=== PATIENT | female | born 1980 | race American Indian/Alaskan Native ===

== ENCOUNTER 2021-11-04 19:39 | Emergency (ER) | payer MEDICAID ==
[2021-11-04 19:43] VITALS: BP 137/92
== END 2021-11-04 23:50 | disposition left against medical advice (07) ==
LOC: ED 19:39
DX: R51.9 Headache, unspecified (principal); Z53.21 Procedure and treatment not carried out due to patient leaving prior to being seen by health care provider

== ENCOUNTER 2022-01-19 23:29 | Emergency (ER) | payer MEDICAID ==
--- NOTE | 2022-01-20 02:25 | Emergency Department Report ---
HPI - General Chief Complaint: Allergic Reaction ED Past Medical Hx - Past Medical History Previous Medical History?: Yes Hx Hypertension: Yes (during ) Hx Congestive Heart Failure: No Hx Diabetes: Yes (GDM) Hx Deep Vein Thrombosis: No Hx Renal Disease: No Hx Sickle Cell Disease: No Hx Seizures: No Hx Asthma: No Hx COPD: No Hx HIV: No Additional medical history: Hypokalemia - Surgical History Past Surgical History?: Yes Additional Surgical History: C section - Social History Smoking Status: Never Smoker Substance Use Type: None - Medications Home Medications: Home Medications Medication Instructions Recorded Confirmed Last Taken Type Sulfamethoxazole/Trimethoprim 1 each PO BID #5 tablet 04/01/15 04/02/15 Unknown Rx [Bactrim Ds] lisinopriL [Zestril TAB] 20 mg PO QDAY #30 tablet 04/01/15 04/02/15 Unknown Rx metFORMIN [Glucophage] 500 mg PO DAILY #30 tablet 04/01/15 04/02/15 Unknown Rx ED Review of Systems ROS: Stated complaint: POSS ALLERGIC REACTION Other details as noted in HPI Physical Exam - Physical Exam Vital Signs: Vital Signs 01/20/22 01:38 Temperature 98 F Pulse Rate 75 Respiratory 18 Rate Blood Pressure 114/82 O2 Sat by Pulse 100 Oximetry ED Course Vital Signs 01/20/22 01:38 Temperature 98 F Pulse Rate 75 Respiratory 18 Rate Blood Pressure 114/82 O2 Sat by Pulse 100 Oximetry Critical care attestation.: If time is entered above; I have spent that time in minutes in the direct care of this critically ill patient, excluding procedure time. ED Disposition Condition: Stable
[2022-01-20] MEDS ORDERED: diphenhydrAMINE 50 MG/ML VIAL IV STA (03:39)
[2022-01-20] MEDS ORDERED: dexAMETHasone 4 MG/ML VIAL IV ONE (03:39)
[2022-01-20] MEDS ORDERED: SODIUM CHLORIDE 0.9% 1000 ML 1,000 ML IV ONE (03:40)
[2022-01-20] MEDS ORDERED: FAMOTIDINE 20 MG/2 ML INJ IV ONE (03:40)
[2022-01-20 04:29] LABS: Blood Urea Nitrogen 5 mg/dL (7-17); Calcium 9.7 mg/dL (8.4-10.2); Hemolysis Index 2
[2022-01-20 04:34] LABS: BUN/Creatinine Ratio 7
--- NOTE | 2022-01-20 06:04 | Emergency Department Report ---
ED General Adult HPI - General Chief complaint: Allergic Reaction Stated complaint: POSS ALLERGIC REACTION Time Seen by Provider: 01/20/22 03:37 Source: patient Mode of arrival: Ambulatory Limitations: No Limitations - History of Present Illness Initial comments: 41-year-old female [facility] emerge department complaining of pruritus and tingling in numbness sensation and sensation shortness of breath when taking Klor-Con for hypokalemia. She did not sustain any visual rashes or wheezing. He reports no lip swelling or tongue swelling. She has no prior experiences taking this medication was worried about allergic reaction so presents emerge department seeking treatment. -: Gradual Radiation: non-radiation Consistency: constant Improves with: none Associated Symptoms: denies other symptoms Treatments Prior to Arrival: none - Related Data Previous Rx's Medication Instructions Recorded Last Taken Type Sulfamethoxazole/Trimethoprim 1 each PO BID #5 tablet 04/01/15 Unknown Rx [Bactrim Ds] lisinopriL [Zestril TAB] 20 mg PO QDAY #30 tablet 04/01/15 Unknown Rx metFORMIN [Glucophage] 500 mg PO DAILY #30 tablet 04/01/15 Unknown Rx hydrOXYzine HCL [Atarax] 25 mg PO Q6HR PRN #14 tablet 01/20/22 Unknown Rx predniSONE [Deltasone] 20 mg PO QDAY #7 tab 01/20/22 Unknown Rx Allergies Allergy/AdvReac Type Severity Reaction Status Date / Time amoxicillin Allergy Swelling Verified 11/04/21 19:47 Penicillins Allergy Anaphylaxis Verified 11/04/21 19:47 ED Review of Systems ROS: Stated complaint: POSS ALLERGIC REACTION Other details as noted in HPI Comment: All other systems reviewed and negative ED Past Medical Hx - Past Medical History Previous Medical History?: Yes Hx Hypertension: Yes (during ) Hx Congestive Heart Failure: No Hx Diabetes: Yes (GDM) Hx Deep Vein Thrombosis: No Hx Renal Disease: No Hx Sickle Cell Disease: No Hx Seizures: No Hx Asthma: No Hx COPD: No Hx HIV: No Additional medical history: Hypokalemia - Surgical History Past Surgical History?: Yes Additional Surgical History: C section - Social History Smoking Status: Never Smoker Substance Use Type: None - Medications Home Medications: Home Medications Medication Instructions Recorded Confirmed Last Taken Type Sulfamethoxazole/Trimethoprim 1 each PO BID #5 tablet 04/01/15 04/02/15 Unknown Rx [Bactrim Ds] lisinopriL [Zestril TAB] 20 mg PO QDAY #30 tablet 04/01/15 04/02/15 Unknown Rx metFORMIN [Glucophage] 500 mg PO DAILY #30 tablet 04/01/15 04/02/15 Unknown Rx hydrOXYzine HCL [Atarax] 25 mg PO Q6HR PRN #14 tablet 01/20/22 Unknown Rx predniSONE [Deltasone] 20 mg PO QDAY #7 tab 01/20/22 Unknown Rx ED Physical Exam - General Limitations: No Limitations General appearance: alert, in no apparent distress - Head Head exam: Present: atraumatic, normocephalic - Eye Eye exam: Present: normal appearance, PERRL, EOMI Pupils: Present: normal accommodation - ENT ENT exam: Present: normal exam, normal orophraynx, mucous membranes moist, TM's normal bilaterally - Neck Neck exam: Present: normal inspection, full ROM - Respiratory Respiratory exam: Present: normal lung sounds bilaterally, chest wall tenderness. Absent: respiratory distress - Cardiovascular Cardiovascular Exam: Present: regular rate, normal rhythm. Absent: systolic murmur, diastolic murmur, rubs, gallop - GI/Abdominal GI/Abdominal exam: Present: soft, normal bowel sounds - Extremities Exam Extremities exam: Present: normal inspection, normal capillary refill - Back Exam Back exam: Present: normal inspection. Absent: CVA tenderness (R), CVA tenderness (L) - Neurological Exam Neurological exam: Present: alert, oriented X3, CN II-XII intact - Psychiatric Psychiatric exam: Present: normal affect, normal mood - Skin Skin exam: Present: warm, dry, intact, normal color. Absent: rash ED Course Vital Signs 01/20/22 01:38 Temperature 98 F Pulse Rate 75 Respiratory 18 Rate Blood Pressure 114/82 O2 Sat by Pulse 100 Oximetry ED Medical Decision Making - Lab Data Result diagrams: 01/20/22 03:58 Critical care attestation.: If time is entered above; I have spent that time in minutes in the direct care of this critically ill patient, excluding procedure time. ED Disposition Clinical Impression: Adverse drug reaction, Allergic reaction Disposition: HOME / SELF CARE / HOMELESS Is pt being admited?: No Does the pt Need Aspirin: No Condition: Stable Instructions: Accidental Drug Poisoning, Adult, Cough, Adult, [id number], How to Use an Auto-Injector Pen, Cough, Adult, Allergies, Adult Additional Instructions: Your potassium level is normal please discontinue utilization your Klor-Con Prescriptions: hydrOXYzine HCL [Atarax] 25 mg PO Q6HR PRN #14 tablet PRN Reason: Itching predniSONE [Deltasone] 20 mg PO QDAY #7 tab Referrals: DAYANARA AGUILAR [Other] - 3-5 Days
[2022-01-20 06:19] VITALS: BP 118/78
== END 2022-01-20 06:20 | disposition home or self-care (01) ==
LOC: ED 23:29
DX: T50.905A Adverse effect of unspecified drugs, medicaments and biological substances, initial encounter (principal); Y92.89 Other specified places as the place of occurrence of the external cause; T78.40XA Allergy, unspecified, initial encounter; I10 Essential (primary) hypertension; E11.9 Type 2 diabetes mellitus without complications; Z88.0 Allergy status to penicillin
CPT/HCPCS: 36415; 80048; 96361; 96374; 96375; 99283; J1100; J1200; J3490; J7030; Q0162

== ENCOUNTER 2022-01-21 09:57 | Emergency (ER) | payer MEDICAID ==
--- NOTE | 2022-01-21 13:15 | Event Note ---
ED Screening Note Date of service: 01/21/22 Time: 13:13 ED Screening Note: Patient presents with complaints of low blood pressure at home and dizziness She reports her blood pressure was 87/79 and then again at 100/70 She states that she is having recurrent dizziness with sitting still that res olves with getting up and walking around No chest pain per patient Patient does appear anxious Patient was seen here on 01/20/2022 for an allergic reaction to oral Klor-Con This initial assessment/diagnostic orders/clinical plan/treatment(s) is/are subject to change based on patients health status, clinical progression and re- assessment by fellow clinical providers in the ED. Further treatment and workup at subsequent clinical providers discretion. Patient/guardian urged not to elope from the ED as their condition may be serious if not clinically assessed and managed. Initial orders include: Orthostatic vitals EKG Labs
[2022-01-21 13:46] LABS: Basophils # (Auto) 0.1 K/mm3 (0.0-0.1); Eosinophils % (Auto) 0.2 % (0.0-4.3); Hematocrit 36.6 % (30.3-42.9); Hemoglobin 11.8 gm/dl (10.1-14.3); Lymphocytes # (Auto) 1.8 K/mm3 (1.2-5.4); Lymphocytes % (Auto) 37.1 % (13.4-35.0); Mean Corpuscular HGB Conc 32 % (30-34); Mean Corpuscular Volume 85 fl (79-97); Monocytes # (Auto) 0.4 K/mm3 (0.0-0.8); Monocytes % (Auto) 7.8 % (0.0-7.3); Platelet Count 308 K/mm3 (140-440); Red Blood Count 4.28 M/mm3 (3.65-5.03); Red Cell Distribution Width 14.2 % (13.2-15.2)
[2022-01-21 15:06] LABS: Bilirubin,Urine NEG (Negative); Blood,Urine NEG (Negative); Color,Urine Yellow (Yellow); Mucus,Urine FEW /HPF; Protein,Urine <15 mg/dL mg/dL (Negative); Urobilinogen,Urine < 2.0 mg/dL (<2.0)
[2022-01-21 15:19] LABS: Alanine Aminotransferase 6 units/L (7-56); Albumin 4.2 g/dL (3.9-5); Blood Urea Nitrogen 6 mg/dL (7-17); Calcium 9.4 mg/dL (8.4-10.2); Hemolysis Index 8
[2022-01-21 15:21] LABS: BUN/Creatinine Ratio 10
[2022-01-21] MEDS ORDERED: SULFAMETHOXAZOLE/TRIMETHOPRIM 800/160MG DS TAB PO ONE (15:41)
--- NOTE | 2022-01-21 15:44 | Emergency Department Report ---
ED Dizziness HPI - General Chief Complaint: Dizziness Stated Complaint: RX NOT READY AT PHARMACY/LOW BP Time Seen by Provider: 01/21/22 12:05 Source: patient Mode of arrival: Ambulatory Limitations: No Limitations - History of Present Illness Initial Comments: 41-year-old female with no past medical history presents to the emergency department for evaluation of dizziness that started this a.m. She states that she has noted over the past 2 days that her blood pressure has been lower than usual. She states that her systolic pressure for the past few days has been between 95 and 100 which she states is low for her. She states that she was treated 2 days ago with steroids for an allergic reaction and was given a prescription to take steroids over the next 6 days but the pharmacist has not been able to fill the prescription yet. She thinks that her low blood pressure could be related to not starting steroids. She states that dizziness is int ermittent and not associated with any change in position. She denies chest pain shortness of breath nausea vomiting. She denies fever abdominal pain or back pain. MD Complaint: dizziness -: Gradual, days(s) (2) Timing: gradual onset Description: lightheadedness History of Same: No History of Trauma: No Severity: moderate Associated Symptoms: denies: chest pain, confusion, cough, diaphoresis, fev er/chills, loss of appetite, malaise, rash, seizure, shortness of breath, syncope, weakness - Related Data Previous Rx's Medication Instructions Recorded Last Taken Type lisinopriL [Zestril TAB] 20 mg PO QDAY #30 tablet 04/01/15 Unknown Rx metFORMIN [Glucophage] 500 mg PO DAILY #30 tablet 04/01/15 Unknown Rx hydrOXYzine HCL [Atarax] 25 mg PO Q6HR PRN #14 tablet 01/20/22 Unknown Rx predniSONE [Deltasone] 20 mg PO QDAY #7 tab 01/20/22 Unknown Rx Nitrofurantoin [place]/M-Cryst 100 mg PO Q12HR #14 capsule 01/21/22 Unknown Rx [Macrobid CAP] Allergies Allergy/AdvReac Type Severity Reaction Status Date / Time amoxicillin Allergy Swelling Verified 11/04/21 19:47 Penicillins Allergy Anaphylaxis Verified 11/04/21 19:47 ED Review of Systems ROS: Stated complaint: RX NOT READY AT PHARMACY/LOW BP Other details as noted in HPI Comment: All other systems reviewed and negative Constitutional: denies: chills, diaphoresis, fever, malaise, weakness Eyes: denies: eye pain, eye discharge ENT: denies: ear pain, throat pain, dental pain Respiratory: denies: cough, shortness of breath, SOB with exertion, SOB at rest, wheezing Cardiovascular: denies: chest pain, palpitations, dyspnea on exertion, orthopnea, edema Endocrine: no symptoms reported Gastrointestinal: denies: abdominal pain, nausea, vomiting, diarrhea, hematemesis, melena, hematochezia Genitourinary: denies: urgency, dysuria, frequency, hematuria, discharge Musculoskeletal: denies: back pain Skin: denies: rash Neurological: denies: headache, weakness, numbness, paresthesias, abnormal gait Psychiatric: denies: anxiety, depression Hematological/Lymphatic: denies: easy bleeding, easy bruising ED Past Medical Hx - Past Medical History Hx Hypertension: Yes (during ) Hx Congestive Heart Failure: No Hx Diabetes: Yes (GDM) Hx Deep Vein Thrombosis: No Hx Renal Disease: No Hx Sickle Cell Disease: No Hx Seizures: No Hx Asthma: No Hx COPD: No Hx HIV: No Additional medical history: Hypokalemia - Surgical History Additional Surgical History: C section - Social History Smoking Status: Never Smoker Substance Use Type: None - Medications Home Medications: Home Medications Medication Instructions Recorded Confirmed Last Taken Type lisinopriL [Zestril TAB] 20 mg PO QDAY #30 tablet 04/01/15 04/02/15 Unknown Rx metFORMIN [Glucophage] 500 mg PO DAILY #30 tablet 04/01/15 04/02/15 Unknown Rx hydrOXYzine HCL [Atarax] 25 mg PO Q6HR PRN #14 tablet 01/20/22 Unknown Rx predniSONE [Deltasone] 20 mg PO QDAY #7 tab 01/20/22 Unknown Rx Nitrofurantoin [place]/M-Cryst 100 mg PO Q12HR #14 capsule 01/21/22 Unknown Rx [Macrobid CAP] ED Physical Exam - General Limitations: No Limitations General appearance: alert, in no apparent distress - Head Head exam: Present: atraumatic, normocephalic - Eye Eye exam: Present: normal appearance. Absent: conjunctival injection - Neck Neck exam: Present: normal inspection. Absent: tenderness, lymphadenopathy - Respiratory Respiratory exam: Present: normal lung sounds bilaterally. Absent: respiratory distress, wheezes, rales, rhonchi, stridor, chest wall tenderness, accessory muscle use - Cardiovascular Cardiovascular Exam: Present: regular rate, normal heart sounds - GI/Abdominal GI/Abdominal exam: Present: soft, normal bowel sounds. Absent: distended, tenderness, guarding, rebound, rigid - Extremities Exam Extremities exam: Present: normal inspection, full ROM - Back Exam Back exam: Present: normal inspection, full ROM, CVA tenderness (R), CVA tenderness (L) - Neurological Exam Neurological exam: Present: alert, oriented X3, CN II-XII intact, normal gait - Psychiatric Psychiatric exam: Present: normal affect, normal mood - Skin Skin exam: Present: warm, dry, intact, normal color ED Course Vital Signs 01/21/22 01/21/22 11:56 16:44 Temperature 98 F Pulse Rate 73 74 Respiratory 16 Rate Blood Pressure 145/77 111/64 [Left] O2 Sat by Pulse 100 Oximetry ED Medical Decision Making - Lab Data Result diagrams: 01/21/22 13:25 01/21/22 13:25 - EKG Data EKG shows normal: sinus rhythm Rate: normal - EKG Data Interpretation: no acute changes, normal EKG 01/21/22 22:12 No acute ischemic changes noted - Radiology Data Radiology results: report reviewed - Medical Decision Making 41-year-old female with no past medical history presents to the emergency department for evaluation of dizziness that started this a.m. She states that she has noted over the past 2 days that her blood pressure has been lower than usual. She states that her systolic pressure for the past few days has been between 95 and 100 which she states is low for her. She states that she was treated 2 days ago with steroids for an allergic reaction and was given a prescription to take steroids over the next 6 days but the pharmacist has not been able to fill the prescription yet. She thinks that her low blood pressure could be related to not starting steroids. She states that dizziness is intermittent and not associated with any change in position. She denies chest pain shortness of breath nausea vomiting. She denies fever abdominal pain or back pain. No gross abnormalities noted to CBC with differential and CMP. EKG without any acute ischemic changes noted. Noted to have large amounts of leukocyte esterase and WBCs on UA. Patient states that she was treated for UTI a week ago but felt like she did not have improvement of symptoms. Patient 100 mg twice a day for 7 days. She is advised to take medication as prescribed drink plenty of noncaffeinated fluids and follow-up with primary care provider if no improvement or worsening symptoms. She verbalized understanding of and agreement with plan of care. For urinary tract infection with Critical care attestation.: If time is entered above; I have spent that time in minutes in the direct care of this critically ill patient, excluding procedure time. ED Disposition Clinical Impression: UTI (urinary tract infection) Qualifiers: Urinary tract infection type: acute cystitis Hematuria presence: without hematuria Qualified Code(s): N30.00 - Acute cystitis without hematuria Disposition: HOME / SELF CARE / HOMELESS Is pt being admited?: No Does the pt Need Aspirin: No Condition: Stable Instructions: Urinary Tract Infection, Adult, [id number] Additional Instructions: Take medication as prescribed. Drink plenty of noncaffeinated fluids. Follow- up with primary care provider if no improvement or worsening symptoms. Prescriptions: Nitrofurantoin [place]/M-Cryst [Macrobid CAP] 100 mg PO Q12HR #14 capsule Referrals: JENNY MORAN MD [Referring] - 3-5 Days Time of Disposition: 15:44
[2022-01-21] MEDS ORDERED: NITROFURANTOIN MONOHYD/M-CRYST 100 MG CAP PO ONE (16:12)
[2022-01-21 16:44] VITALS: BP 111/64
--- NOTE | 2022-01-22 11:47 | Electrocardiograph Report ---
[facility] Test Date: 2022-01-21 Test Time: 13:23:20 Pat Name: QUINTIN LOW Department: Room: Gender: F Electrical Equipment Tester: ANA : 1980 Requested By: KATY NORTON Order Number: [id number] Reading MD: Zen Castañeda Measurements Intervals [place] Rate: 68 P: 72 SD: 127 QRS: 56 QRSD: 71 T: 57 QT: 394 QTc: 419 Interpretive Statements Sinus rhythm Probable left atrial enlargement No previous ECG available for comparison Electronically Signed On 01-22-2022 10:46:17 EST by Zen Castañeda
== END 2022-01-21 16:44 | disposition home or self-care (01) ==
LOC: ED 09:57
DX: N39.0 Urinary tract infection, site not specified (principal); I10 Essential (primary) hypertension; E11.9 Type 2 diabetes mellitus without complications
CPT/HCPCS: 36415; 80053; 81001; 84703; 85025; 87086; 93005; 93010; 99283

== ENCOUNTER 2022-01-22 15:37 | Emergency (ER) | payer MEDICAID ==
[2022-01-22] MEDS ORDERED: FAMOTIDINE 20 MG/2 ML INJ IV ONE (15:51)
[2022-01-22] MEDS ORDERED: SODIUM CHLORIDE 0.9% 1000 ML 1,000 ML IV ONE (15:51)
[2022-01-22] MEDS ORDERED: diphenhydrAMINE 50 MG/ML VIAL IV ONE (15:51)
[2022-01-22] MEDS ORDERED: methylPREDNISolone Sod Succinate 125 MG/2 ML INJ IV ONE (15:51)
--- NOTE | 2022-01-22 16:27 | Emergency Department Report ---
HPI - General Chief Complaint: Allergic Reaction Time Seen by Provider: 01/22/22 15:41 - HPI HPI: 41-year-old female presents to the hospital with possible allergic reaction After taking Bactrim. Patient initially stated that she had allergic reaction a fter taking Bactrim, have alternative medication prescribed but has not yet filled it and took another Bactrim. Within 1 hour of taking her Bactrim she complains of a tingling sensation to the right side of her face, neck, and some mild shortness of breath when she sits upright. She complains of dry throat. No wheezing, rash, pruritus, or respiratory distress noted. As per medical record review patient was here for the following complaint As per medical record review portion of HPI copy and pasted below On January 20: 41-year-old female emerge department complaining of pruritus and tingling in numbness sensation and sensation shortness of breath when taking Klor-Con for hypokalemia. On January 21: 41-year-old female with no past medical history presents to the emergency department for evaluation of dizziness that started this a.m. She states that she has noted over the past 2 days that her blood pressure has been lower than usual. She states that her systolic pressure for the past few days has been between 95 and 100 which she states is low for her. She states that she was treated 2 days ago with steroids for an allergic reaction and was given a prescription to take steroids over the next 6 days but the pharmacist has not been able to fill the prescription yet. She thinks that her low blood pressure could be related to not starting steroids. On the the provider prescribed Macrobid for her UTI due to persistent UTI findings. UA revealed elevated white count and epithelial cells therefore questionable contamination however large leuk esterase noted negative nitrites and bacteria. Urine culture shows no growth x24 hours Patient is still not taking the steroids, Atarax, or the recently prescribed Macrobid ED Past Medical Hx - Past Medical History Hx Hypertension: Yes (during ) Hx Congestive Heart Failure: No Hx Diabetes: Yes (GDM) Hx Deep Vein Thrombosis: No Hx Renal Disease: No Hx Sickle Cell Disease: No Hx Seizures: No Hx Asthma: No Hx COPD: No Hx HIV: No Additional medical history: Hypokalemia - Surgical History Additional Surgical History: C section - Social History Smoking Status: Never Smoker Substance Use Type: None - Medications Home Medications: Home Medications Medication Instructions Recorded Confirmed Last Taken Type lisinopriL [Zestril TAB] 20 mg PO QDAY #30 tablet 04/01/15 04/02/15 Unknown Rx metFORMIN [Glucophage] 500 mg PO DAILY #30 tablet 04/01/15 04/02/15 Unknown Rx hydrOXYzine HCL [Atarax] 25 mg PO Q6HR PRN #14 tablet 01/20/22 Unknown Rx predniSONE [Deltasone] 20 mg PO QDAY #7 tab 01/20/22 Unknown Rx Nitrofurantoin [place]/M-Cryst 100 mg PO Q12HR #14 capsule 01/21/22 Unknown Rx [Macrobid CAP] EPINEPHrine [Epipen] 0.3 mg IJ ONCE #1 dose 01/22/22 Unknown Rx ED Review of Systems ROS: Stated complaint: ALLERGIC REACTION Other details as noted in HPI Physical Exam - Physical Exam Physical Exam: General: No acute distress Head: Atraumatic Eyes: normal appearance ENT: Moist mucous membranes, no tongue or posterior pharynx swelling Neck: Normal appearance, no midline tenderness Chest: Clear to auscultation bilaterally CV: Regular rate and rhythm Abdomen: Soft, normal bowel sounds, nontender, nondistended, no rebound or guarding Back: Normal inspection Extremity: Normal inspection, full range of motion Neuro: Alert O x 3, no facial asymmetry, speech clear, no gross motor sensory deficit Psych: Appropriate behavior Skin: No rash ED Course - Reevaluation(s) Reevaluation #1: 01/22/22 16:33 Patient agreed to Benadryl Pepcid but refused solumedrol ED Medical Decision Making - Medical Decision Making 41-year-old female presents to the hospital with atypical symptoms with concern of allergic reaction. She brings a tingling to right side and some throat discomfort. No airway swelling noted. Patient treated with Benadryl, Pepcid, normal saline. She declined offer for steroids. She also has a prescription for Atarax and prednisone she has yet to feel. She also has Macrobid in the pharmacy but should be ready for pickup. She was told to discontinue Bactrim due to possible allergy. I am not convinced patient has a UTI given recent negative culture. She endorses urinary frequency without burning. EpiPen will be provided Critical Care Time: No Critical care attestation.: If time is entered above; I have spent that time in minutes in the direct care of this critically ill patient, excluding procedure time. ED Disposition Clinical Impression: Adverse drug reaction Disposition: 01 HOME / SELF CARE / HOMELESS Is pt being admited?: No Does the pt Need Aspirin: No Condition: Stable Instructions: Drug Allergy, [id number] Additional Instructions: Take the Atarax, prednisone, Macrobid as prescribed. Take EpiPen as needed for anaphylaxis. Follow-up with your doctor or doctor/clinic provided. Return if symptoms worsen as indicated by your discharge instructions. Prescriptions: EPINEPHrine [Epipen] 0.3 mg IJ ONCE #1 dose Referrals: PRIMARY CARE [Primary Care Provider] - 3-5 Days [facility] [Provider Group] - 3-5 Days Time of Disposition: 18:26
[2022-01-22 16:44] VITALS: BP 119/83
== END 2022-01-22 19:17 | disposition home or self-care (01) ==
LOC: ED 15:37
DX: R06.02 Shortness of breath (principal); R20.2 Paresthesia of skin; T50.905A Adverse effect of unspecified drugs, medicaments and biological substances, initial encounter; Y92.89 Other specified places as the place of occurrence of the external cause; I10 Essential (primary) hypertension; E11.9 Type 2 diabetes mellitus without complications
CPT/HCPCS: 96361; 96374; 96375; 99283; J1200; J2930; J3490; J7030; Q0162